=== PATIENT | male | born 1985 | race Caucasian/White ===

== ENCOUNTER 2016-12-13 19:06 | Emergency (ER) | payer SELFPAY ==
[~2016-12-13] VITALS: Ht 182.9 cm; Wt 95.2 kg
[~2016-12-13 19:06] MED LIST: BACTRIM DS TABL1 TAB PO; KEFLEX PO; NO MEDICATIONS
[2016-12-13] MEDS ORDERED: NASONEX17 GM (19:18)
== END 2016-12-13 20:01 | disposition home or self-care (01) ==
LOC: SED 19:06
DX: L03.116 Cellulitis of left lower limb (principal); L03.115 Cellulitis of right lower limb; Z98.890 Other specified postprocedural states
CPT/HCPCS: 99282